=== PATIENT | male | born 1975 ===

== ENCOUNTER 2018-07-08 21:56 | Emergency (ER) | payer SELFPAY ==
[2018-07-08] MEDS ORDERED: Sodium Chloride 0.9% 1,000 ML IV STA (22:15)
[2018-07-08 23:01] LABS: URINE BILIRUBIN NEGATIVE (NEGATIVE); URINE CLARITY CLEAR (Clear); URINE COLOR YELLOW (YELLOW); URINE GLUCOSE (UA) NEG (NEGATIVE); URINE LEUKOCYTE ESTERASE NEG Leu/uL (Negative); URINE PROTEIN NEGATIVE (NEGATIVE); URINE UROBILINOGEN 0.2-1.0 mg/dL (0.2-1.0)
[2018-07-08 23:02] LABS: BASO % 0.2 % (0.0-2.0); EOS # 0.1 K/uL (0.0-0.7); EOS % 1.3 % (0.0-4.0); HEMOGLOBIN 14.6 g/dL (12.0-18.0); LYMPH # 1.8 K/uL (1.0-4.3); LYMPH % 20.2 % (20.0-40.0); MEAN CELL VOLUME 89.3 fl (80.0-94.0); MEAN CORPUSCULAR HEMOGLOBIN 30.5 pg (27.0-31.0); MEAN CORPUSCULAR HGB CONC 34.1 g/dL (33.0-37.0); MEAN PLATELET VOLUME 9.2 fl (7.2-11.7); MONO # 0.7 K/uL (0.0-0.8); MONO % 7.8 % (0.0-10.0); NEUT # 6.3 K/uL (1.8-7.0); NEUT % 70.5 % (50.0-75.0); RBC 4.8 Mil/uL (4.40-5.90); RED CELL DISTRIBUTION WIDTH 13.6 % (11.5-14.5); WHITE BLOOD COUNT 8.9 K/uL (4.8-10.8)
[2018-07-08 23:03] LABS: URINE BLOOD TRACE (NEGATIVE)
[2018-07-08 23:08] LABS: ALB/GLOB RATIO 1.4 (1.0-2.1); ALBUMIN 4.5 g/dL (3.5-5.0); ALT/SGPT 87 U/L (21-72); AST/SGOT 81 U/L (17-59); BLOOD UREA NITROGEN 14 mg/dl (9-20); GFR NON-AFRICAN AMERICAN > 60; LIPASE 95 U/L (23-300)
--- NOTE | 2018-07-09 00:43 | ED PDOC ---
HPI: Abdomen Time Seen by Provider: 07/08/18 22:03 Chief Complaint (Nursing): Abdominal Pain History Per: Patient Additional Complaint(s): Pt. states for the past 4 days he's had non-bloody watery diarrhea associated with non-radiating, intermittent, crampy lower abdominal pain. Also reports having 2 episodes of vomiting initially which resolved after the 1st day but nausea persists. Denies fever, chills, melena, hematochezia, BRBPR, sick contacts, recent travel. Past Medical History Reviewed: Historical Data, Nursing Documentation, Vital Signs Vital Signs: Last Vital Signs Temp 98.7 F 07/08/18 22:02 Pulse 71 07/08/18 22:02 Resp 20 07/08/18 22:02 BP 145/71 07/08/18 22:02 Pulse Ox 97 07/08/18 22:02 - Family History Family History: States: No Known Family Hx - Home Medications Home Medications: Ambulatory Orders Medication Instructions Recorded Dicyclomine [Bentyl] 20 mg PO TID PRN #10 tab 07/09/18 Ondansetron ODT [Zofran ODT] 4 mg PO TID #10 odt 07/09/18 - Allergies Allergies/Adverse Reactions: Allergies Allergy/AdvReac Type Severity Reaction Status Date / Time No Known Allergies Allergy Verified 07/08/18 22:02 Review of Systems ROS Statement: Except As Marked, All Systems Reviewed And Found Negative Gastrointestinal: Positive for: Nausea, Vomiting, Abdominal Pain, Diarrhea Physical Exam - Physical Exam Appears: Positive for: Well, Non-toxic, No Acute Distress Skin: Positive for: Normal Color, Warm. Negative for: Rash Eye Exam: Positive for: Normal appearance ENT: Positive for: Normal ENT Inspection Cardiovascular/Chest: Positive for: Regular Rate, Rhythm Respiratory: Positive for: Normal Breath Sounds. Negative for: Respiratory Distress Gastrointestinal/Abdominal: Positive for: Normal Exam, Bowel Sounds, Soft. Negative for: Tenderness, Distended, Guarding Back: Negative for: L CVA Tenderness, R CVA Tenderness Neurological/Psych: Positive for: Awake, Alert, Oriented (x3) - Laboratory Results Result Diagrams: 07/08/18 22:37 07/08/18 22:37 Lab Results: Total Bilirubin 0.5 mg/dl (0.2-1.3) 07/08/18 22:37 AST 81 U/L (17-59) H 07/08/18 22:37 ALT 87 U/L (21-72) H 07/08/18 22:37 Alkaline Phosphatase 101 U/L (38-126) 07/08/18 22:37 Total Protein 7.6 G/DL (6.3-8.2) 07/08/18 22:37 Albumin 4.5 g/dL (3.5-5.0) 07/08/18 22:37 Globulin 3.1 gm/dL (2.2-3.9) 07/08/18 22:37 Albumin/Globulin Ratio 1.4 (1.0-2.1) 07/08/18 22:37 Lipase 95 U/L (23-300) 07/08/18 22:37 Urine Color Yellow (YELLOW) 07/08/18 22:35 Urine Clarity Clear (Clear) 07/08/18 22:35 Urine pH 6.0 (5.0-8.0) 07/08/18 22:35 Ur Specific [place] 1.013 (1.003-1.030) 07/08/18 22:35 Urine Protein Negative mg/dL (NEGATIVE) 07/08/18 22:35 Urine Glucose (UA) Neg mg/dL (NEGATIVE) 07/08/18 22:35 Urine Ketones Negative mg/dL (NEGATIVE) 07/08/18 22:35 Urine Blood Trace (NEGATIVE) 07/08/18 22:35 Urine Nitrate Negative (NEGATIVE) 07/08/18 22:35 Urine Bilirubin Negative (NEGATIVE) 07/08/18 22:35 Urine Urobilinogen 0.2-1.0 mg/dL (0.2-1.0) 07/08/18 22:35 Ur Leukocyte Esterase Neg Vicky/uL (Negative) 07/08/18 22:35 Urine RBC (Auto) 3 /hpf (0-3) 07/08/18 22:35 Urine Microscopic WBC < 1 /hpf (0-5) 07/08/18 22:35 - ECG O2 Sat by Pulse Oximetry: 97 - Progress ED Course And Treament: Labs, bentyl 20mg PO, IV NS bolus, zofran 4mg IV ordered. Re-evaluation Time: 23:25 Condition: Re-examined, Improved Disposition - Clinical Impression Clinical Impression: Gastroenteritis - Patient ED Disposition Is Patient to be Admitted: No - Disposition Disposition: Routine/Home Disposition Time: 23:30 Condition: IMPROVED Additional Instructions: FOLLOW UP WITH [facility] FOR FURTHER EVALUATION RETURN TO ED IMMEDIATELY IF SYMPTOMS WORSEN ANGELICA FIELDS, thank you for letting us take care of you today. Your provider was Valorie Alexander MD and you were treated for ABD PAIN. The emergency medical care you received today was directed at your acute symptoms. If you were prescribed any medication, please fill it and take as directed. It may take several days for your symptoms to resolve. Return to the Emergency Department if your symptoms worsen, do not improve, or if you have any other problems. Please contact your doctor or call one of the physicians/clinics you have been referred to that are listed on the Patient Visit Information form that is included in your discharge packet. Bring any paperwork you were given at dischar ge with you along with any medications you are taking to your follow up visit. Our treatment cannot replace ongoing medical care by a primary care provider outside of the emergency department. Thank you for allowing the [facility] team to be part of your care today. If you had an X-Ray or CT scan: A Radiologist will review the ED reading if any change in treatment is needed we will contact you. If you had a blood, urine, or wound culture: It will take several days for the results, if any change in treatment is needed we will contact you. If you had an STI test: It will take 48 hours for the results. Please call after 1 week if you have not heard back. Prescriptions: Dicyclomine [Bentyl] 20 mg PO TID PRN #10 tab PRN Reason: Abdominal pain Ondansetron ODT [Zofran ODT] 4 mg PO TID #10 odt Instructions: Gastroenteritis (ED) Forms: [employer] (Norwegian) Print Language: NAURUAN
[2018-07-09 01:12] VITALS: BP 143/68; PULSE 73; RESP 18; TEMP 98.6
[2018-07-09 02:31] VITALS: O2SAT 97
== END 2018-07-09 01:11 | disposition home or self-care (01) ==
LOC: EDBD 21:56 → H.ER 21:56
DX: K52.9 Noninfective gastroenteritis and colitis, unspecified (principal)
CPT/HCPCS: 80053; 81003; 83690; 85025; 96361; 96374; 99283; J2405; J7030